=== PATIENT | male | born 1940 | race Caucasian/White ===

== ENCOUNTER 2017-06-10 11:21 | Outpatient (CLI) | payer MEDICARE, OTHER ==
[2017-06-10] MEDS ORDERED: Gadobenate Dimeglumine 529 MG/1 ML (20ML VIAL) ONE (14:05)
--- NOTE | 2017-06-10 14:58 | MRI ---
MRI BRAIN AND INTERNAL AUDITORY CANALS WITH AND WITHOUT CONTRAST: DATE: 06/10/17. HISTORY: A 76-year-old male with H90.3 sensorineural hearing loss, bilateral, right tinnitus, and vertigo. TECHNIQUE: Multiple sequences obtained in axial, sagittal, and coronal planes; both whole brain images and thin slices through the IAC's, pre and post IV injection of gadolinium-based contrast agent: 13 mL of Mult iHance. FINDINGS: The ventricles are normal in size and configuration. There is no restricted diffusion, abnormal intr aaxial enhancement, mass, midline shift or any other mass effect, recent intraaxial hemorrhage, or ex traaxial fluid collection. There are a few scattered punctate T2-hyperintensities in the cerebral whi te matter consistent with mild chronic ischemic white matter changes due to mild microvascular athero sclerosis. There is no abnormal enhancement, mass, or morphologic abnormality, involving the cerebellopontine an gles, 7th-8th nerve complexes, internal auditory canals, cochleae, vestibules, vestibular aqueducts, or semicircular canals. IMPRESSION: 1. Mild chronic ischemic white matter changes. 2. Otherwise negative. jn[] POS: NATALY
== END 2017-06-10 11:22 | disposition home or self-care (01) ==
LOC: MRI 11:21
PROVIDERS: ATTEND Otolaryngology Plastic Surgery within the Head & Neck
DX: H90.3 Sensorineural hearing loss, bilateral (principal); H93.11 Tinnitus, right ear; R42 Dizziness and giddiness
CPT/HCPCS: 70553; A9579

== ENCOUNTER 2018-01-23 12:55 | Outpatient (CLI) | payer MEDICARE, OTHER ==
--- NOTE | 2018-01-23 15:30 | MRI ---
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 Chronic low back pain. COMPARISON: None. TECHNIQUE: MRI lumbar spine is performed without intravenous Gadolinium administration. Multisequential, multip lanar imaging is performed. FINDINGS: There is appropriate T1 marrow signal intensity throughout the lumbar vertebrae with the exception of the right pedicle at L4 and L5. There is 4 mm of anterolisthesis of L4 upon L5 without associated s pondylosis. Symmetric signal intensity of the psoas muscles. Appropriate signal intensity of the visualized maya d organs with the exception of the left kidney where there appear to be multiple cysts in a prominent extrarenal pelvis. Conus medullaris terminates at the mid to upper aspect of L1. T12-L1: Adequate disk hydration. No significant central canal stenosis or foraminal narrowing. L1-L2: Adequate disk hydration. No significant central canal stenosis. Neural foramen are patent. L2-L3: Adequate disk hydration. No significant central canal stenosis. Neural foramen are patent b ilaterally. L3-L4: Adequate disk hydration. No significant central canal stenosis. Neural foramen are patent b ilaterally. L4-L5: Adequate disk hydration. There is mild loss of disk space height. Generalized disk bulge, l igamentum flavum thickening and facet hypertrophy result in mild central canal stenosis. Impingement of both subarticular zones with disk material abutting but not obscuring either traversing L5 nerve root. Mild to moderate right and mild left foraminal narrowing. L5-S1: Moderate loss of disk space height. The4re is central disk bulge with disk material abutting both traversing S1 nerve roots without any significant obscuration. No significant stenosis of the thecal sac. Mild bilateral foraminal narrowing. IMPRESSION: 1. Grade I anterolisthesis of L4 upon L5. Edema in the right pedicle at L4 and L5 is presumed to be due to mechanical stresses. 2. No high-grade central canal stenosis or high-grade foraminal narrowing. 3. Impingement of bilateral subarticular zones at L4-L5 and central disk bulge at L5-S1 as described above. POS: NATALY
== END 2018-01-23 12:56 | disposition home or self-care (01) ==
LOC: BICMRI 12:55
PROVIDERS: ATTEND Specialist
DX: M51.16 Intervertebral disc disorders with radiculopathy, lumbar region (principal); M43.06 Spondylolysis, lumbar region; R60.0 Localized edema; M51.87 Other intervertebral disc disorders, lumbosacral region
CPT/HCPCS: 72148

== ENCOUNTER 2018-12-01 13:09 | Outpatient (CLI) | payer MEDICARE, OTHER ==
--- NOTE | 2018-12-01 13:38 | RAD ---
Lumbar spine flexion and extension lateral views HISTORY: Low back pain. Myelopathy. FINDINGS: Vertebral body heights are maintained. Frontal view not included. Osteophytosis of the lowe r facets. At the L4-5 level, there is 0.2 cm spondylolisthesis on the neutral and extension views that increase s to 0.4 cm upon flexion. Calcification over the arterial structures of the retroperitoneum. IMPRESSION: Degenerative changes lower lumbar spine including mild translational motion at the L4-5 l evel. Atherosclerosis.
--- NOTE | 2018-12-01 14:03 | MRI ---
MRI lumbar spine noncontrast HISTORY: Low back pain. COMPARISON: 01/23/2018. FINDINGS: Images including the retroperitoneum again show small cyst of the cortex of the left kidney and an extrarenal pelvis. The conus medullaris has a normal appearance. Bone marrow signal is within normal limits. Vertebral b mian heights are maintained. Desiccation of the lowest 3 intervertebral discs. Increased T2 signal and diminished T1 signal is present within the right facets at L4 and L5. Mild degenerative changes at the upper to mid lumbar spine are again demonstrated without significant central canal or foraminal stenosis. L4-5: Mild spondylolisthesis, 0.4 cm, is unchanged from the previous exam. Very mild disc bulge. Mini mal effacement of the ventral aspect of the thecal sac. Disc bulge, spondylolisthesis, and osteophytosis result in mild bilateral foraminal stenoses. L5-S1: Minimal disc bulge. Thecal sac is patent. Osteophytosis of the facets. Neural foramina are pat ent. IMPRESSION: Mild degenerative changes lower lumbar spine, stable. No focal nerve root compression kimberly dent. Stress reaction bone marrow edema within the right facets at the L4 and L5 levels. Similar in appeara nce to the previous exam.
== END 2018-12-01 13:10 | disposition home or self-care (01) ==
LOC: TBSIIMAG 13:09
PROVIDERS: ATTEND Nurse Practitioner Family
DX: M47.816 Spondylosis without myelopathy or radiculopathy, lumbar region (principal); I70.8 Atherosclerosis of other arteries; R60.0 Localized edema
CPT/HCPCS: 72100; 72148

== ENCOUNTER 2019-07-20 10:26 | Outpatient (CLI) | payer MEDICARE, OTHER ==
--- NOTE | 2019-07-20 15:10 | NM ---
WHOLE BODY BONE SCAN: HISTORY: Malignant neoplasm of prostate RADIOPHARMACEUTICAL: 30 mCi technetium 99m-MDP injected intravenously COMPARISON: None CORRELATION: MRI lumbar spine dated 12/01/2018 FINDINGS: There scattered degenerative activity in the appendicular skeleton. Increased uptake in the right L4- 5 facet joint is also consistent with degenerative change. No other abnormal areas of tracer localization are seen in the skeleton to suggest metastatic disease . Tracer excretion through the kidneys is within normal limits. IMPRESSION: No scintigraphic evidence of osseous metastatic disease.
== END 2019-07-20 10:27 | disposition home or self-care (01) ==
LOC: NM 10:26
PROVIDERS: ATTEND Internal Medicine Hematology & Oncology
DX: C61 Malignant neoplasm of prostate (principal); R97.20 Elevated prostate specific antigen [PSA]
CPT/HCPCS: 78306; A9503